=== PATIENT | female | born 1955 | race American Indian/Alaskan Native ===

== ENCOUNTER 2017-05-19 14:05 | Emergency (ER) | payer MEDICARE ==
--- NOTE | 2017-05-19 16:49 | Emergency Department Report ---
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 Mastectomy. Hysterectomy - Social History Smoking Status: Unknown if ever smoked Substance Use Type: None - Medications Home Medications: Home Medications Medication Instructions Recorded Confirmed Last Taken Type Carvedilol [Coreg] 25 mg PO BID 08/08/14 08/08/14 08/08/14 13:00 History Dapsone (Nf) 50 mg PO DAILY 08/08/14 08/08/14 08/08/14 13:00 History Furosemide [Lasix] 40 mg PO BID 08/08/14 08/08/14 08/07/14 21:00 History HYDROcodone/ACETAMINOPHEN 1 each PO Q6H PRN 08/08/14 08/08/14 Unknown History [Hydrocodon-Acetaminoph 7.5-325] Hydroxychloroquine [Plaquenil] 400 mg PO QDAY 08/08/14 08/08/14 08/08/14 13:00 History Morphine Sulfate [Ms Contin] 100 mg PO TID 08/08/14 08/08/14 Unknown History Prednisone [predniSONE] 7 mg PO QDAY 08/08/14 08/08/14 08/08/14 13:00 History Pantoprazole [Protonix] 20 mg PO BID #60 tablet. 08/09/14 Unknown Rx ED Review of Systems ROS: Stated complaint: CAN'T URINE SINCE YESTERDAY Other details as noted in HPI Physical Exam - Physical Exam Vital Signs: Vital Signs 05/19/17 14:56 Temperature 98.8 F Pulse Rate 76 Respiratory 18 Rate Blood Pressure 141/80 O2 Sat by Pulse 100 Oximetry ED Course Vital Signs 05/19/17 14:56 Temperature 98.8 F Pulse Rate 76 Respiratory 18 Rate Blood Pressure 141/80 O2 Sat by Pulse 100 Oximetry Critical care attestation.: If time is entered above; I have spent that time in minutes in the direct care of this critically ill patient, excluding procedure time. ED Disposition Condition: Stable Instructions: Abdominal Pain (ED)
--- NOTE | 2017-05-19 16:49 | Emergency Department Report ---
Entered by MANDIE SINGH, acting as scribe for ED SHEPHERD PA. Chief Complaint: Abdominal Pain Stated Complaint: CAN'T URINE SINCE YESTERDAY Time Seen by Provider: 05/19/17 15:15 - HPI History of Present Illness: 62 year old female with PMHx [place], [place], HTN presents to the ED with c/o ischuria and bilateral swelling of lower extremities since yesterday. Patient states she has difficulties in urinating since yesterday afternoon, and the last time was yesterday morning. Patient's last chemotherapy was 2 weeks ago and follows up on 05/25/2017. Patient reports constipation but denies fever, chills, SOB, chest pain, and abdominal pain. - ROS Review of Systems: Reports ischuria and constipation Denies fever, chills, SOB, chest pain, and abdominal pain. - Exam Vital Signs: Vital Signs 05/19/17 14:56 Temperature 98.8 F Pulse Rate 76 Respiratory 18 Rate Blood Pressure 141/80 O2 Sat by Pulse 100 Oximetry Physical Exam: Constitutional: Non toxic appearing, NAD. Cardiovascular: Normal rate and rhythm with normal S1/S2 sounds. Respiratory: No respiratory distress. Lung sounds clear to auscultation bilaterally. Abdomen: Soft, nontender, and nondistended. Positive bowel sounds. No hepatosplenomegaly was noted. No guarding or rebound tenderness, negative epigastric bruit. Negative psoas sign, negative avila sign, negative McBurneys sign MSE screening note: Focused history and physical exam performed. Due to findings the following was ordered: ED Disposition for MSE Condition: Stable Instructions: Abdominal Pain (ED) This documentation as recorded by the scribe,MANDIE SINGH,accurately reflects the service I personally performed and the decisions made by JOAO alvarenga OYINLOLA A, PA.
[2017-05-19 21:29] LABS: Calcium 8.9 mg/dL (8.4-10.2)
[2017-05-19 21:30] LABS: Albumin 3.5 g/dL (3.9-5); Albumin/Globulin Ratio 1.2 %; Bilirubin,Total 0.2 mg/dL (0.1-1.2); Chloride 96.5 mmol/L (98-107); Total Protein 6.5 g/dL (6.3-8.2)
[2017-05-19 21:35] LABS: Hematocrit 43.2 % (30.3-42.9); Hemoglobin 13.7 gm/dl (10.1-14.3); Mean Corpuscular HGB Conc 32 % (30-34); Mean Corpuscular Hemoglobin 28 pg (28-32); Mean Corpuscular Volume 89 fl (79-97); Platelet Count 210 K/mm3 (140-440); Red Blood Count 4.85 M/mm3 (3.65-5.03); Red Cell Distribution Width 13.9 % (13.2-15.2); White Blood Count 4.3 K/mm3 (4.5-11.0)
[2017-05-19] MEDS ORDERED: NACL 0.9% 1000 ML 1,000 ML IV ONE (22:06)
--- NOTE | 2017-05-19 22:08 | Emergency Department Report ---
ED Abdominal Pain HPI - General Chief Complaint: Abdominal Pain Stated Complaint: CAN'T URINE SINCE YESTERDAY Time Seen by Provider: 05/19/17 15:15 Source: patient Mode of arrival: Ambulatory Limitations: No Limitations - History of Present Illness MD Complaint: abdominal pain, other (can not urinate) Migration to: no migration Severity: moderate Severity scale (0 -10): 7 Quality: cramping, aching Consistency: constant Improves With: nothing Worsens With: nothing Associated Symptoms: nausea. denies: vomiting, diarrhea, fever, chills, constipation, hematemesis, hematochezia, melena, hematuria, anorexia - Related Data Home Medications Medication Instructions Recorded Confirmed Last Taken Carvedilol [Coreg] 25 mg PO BID 08/08/14 05/19/17 05/19/17 08:00 Dapsone (Nf) 50 mg PO DAILY 08/08/14 05/19/17 05/19/17 07:00 Furosemide [Lasix] 40 mg PO BID 08/08/14 05/19/17 05/19/17 08:00 HYDROcodone/ACETAMINOPHEN 1 each PO Q6H PRN 08/08/14 05/19/17 05/19/17 08:00 [Hydrocodon-Acetaminoph 7.5-325] Hydroxychloroquine [Plaquenil] 400 mg PO QDAY 08/08/14 05/19/17 05/19/17 08:00 Morphine Sulfate [Ms Contin] 100 mg PO TID 08/08/14 05/19/17 05/19/17 08:00 Prednisone [predniSONE] 7 mg PO QDAY 08/08/14 05/19/17 05/19/17 08:00 Previous Rx's Medication Instructions Recorded Last Taken Type Pantoprazole [Protonix] 20 mg PO BID #60 tablet. 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 Mastectomy. Hysterectomy - Social History Smoking Status: Unknown if ever smoked Substance Use Type: None - Medications Home Medications: Home Medications Medication Instructions Recorded Confirmed Last Taken Type Carvedilol [Coreg] 25 mg PO BID 08/08/14 05/19/17 05/19/17 08:00 History Dapsone (Nf) 50 mg PO DAILY 08/08/14 05/19/17 05/19/17 07:00 History Furosemide [Lasix] 40 mg PO BID 08/08/14 05/19/17 05/19/17 08:00 History HYDROcodone/ACETAMINOPHEN 1 each PO Q6H PRN 08/08/14 05/19/17 05/19/17 08:00 History [Hydrocodon-Acetaminoph 7.5-325] Hydroxychloroquine [Plaquenil] 400 mg PO QDAY 08/08/14 05/19/17 05/19/17 08:00 History Morphine Sulfate [Ms Contin] 100 mg PO TID 08/08/14 05/19/17 05/19/17 08:00 History Prednisone [predniSONE] 7 mg PO QDAY 08/08/14 05/19/17 05/19/17 08:00 History Pantoprazole [Protonix] 20 mg PO BID #60 tablet. 08/09/14 05/19/17 05/19/17 08 :00 Rx ED Physical Exam - General Limitations: No Limitations General appearance: alert, in no apparent distress - Head Head exam: Present: atraumatic, normocephalic - Eye Eye exam: Present: normal appearance, PERRL - ENT ENT exam: Present: normal exam, mucous membranes dry - Neck Neck exam: Present: normal inspection - Respiratory Respiratory exam: Present: normal lung sounds bilaterally. Absent: respiratory distress - Cardiovascular Cardiovascular Exam: Present: regular rate, normal rhythm. Absent: systolic murmur, diastolic murmur, rubs, gallop - GI/Abdominal GI/Abdominal exam: Present: soft, normal bowel sounds - Extremities Exam Extremities exam: Present: normal inspection - Back Exam Back exam: Present: normal inspection - Neurological Exam Neurological exam: Present: alert, oriented X3 - Psychiatric Psychiatric exam: Present: normal affect, normal mood - Skin Skin exam: Present: warm, dry, intact, normal color. Absent: rash ED Course Vital Signs 05/19/17 05/19/17 05/19/17 14:56 21:15 21:21 Temperature 98.8 F Pulse Rate 76 72 Respiratory 18 12 Rate Blood Pressure 141/80 150/73 O2 Sat by Pulse 100 100 100 Oximetry 05/19/17 05/19/17 05/19/17 21:31 21:41 21:51 Temperature Pulse Rate 73 72 78 Respiratory 12 12 10 L Rate Blood Pressure 150/73 150/73 150/73 O2 Sat by Pulse 100 100 100 Oximetry 05/19/17 05/19/17 05/19/17 22:00 22:27 22:31 Temperature Pulse Rate 73 74 76 Respiratory 13 19 12 Rate Blood Pressure 148/72 148/72 148/72 O2 Sat by Pulse 99 100 Oximetry 05/19/17 05/19/17 22:41 22:51 Temperature Pulse Rate 77 79 Respiratory 12 11 L Rate Blood Pressure 148/72 148/72 O2 Sat by Pulse 99 56 L Oximetry ED Medical Decision Making - Lab Data Result diagrams: 05/19/17 20:50 05/19/17 20:50 - Radiology Data Radiology results: report reviewed, image reviewed - Medical Decision Making patient doing well, total relieved of the symptoms after smith was placed, she prefers to go home with it and follow up with PMD for removal, labs negative and ct abdomen and pelvis negative. Critical care attestation.: If time is entered above; I have spent that time in minutes in the direct care of this critically ill patient, excluding procedure time. ED Disposition Clinical Impression: Abdominal pain, Urinary retention Disposition: - TO HOME OR SELFCARE Is pt being admited?: No Does the pt Need Aspirin: No Condition: Good Instructions: Abdominal Pain (ED) Referrals: PRIMARY CARE, [Primary Care Provider] - 3-5 Days Time of Disposition: 23:36
[2017-05-19 22:26] LABS: Basophils % (Manual) 0 % (0.0-1.8); Blastocytes % (Manual) 0 %
[2017-05-19 22:27] LABS: Diff Status Complete; Platelet Estimate Consistent w Auto; RBC Morphology Normal
--- NOTE | 2017-05-19 22:44 | Cat Scan Report ---
FINAL REPORT PROCEDURE: CT ABDOMEN PELVIS WO CON TECHNIQUE: Computerized axial tomography of the abdomen and pelvis was performed without intravenous contrast. This study is performed without intravascular contrast material and its sensitivity for abdominal and pelvic pathology, including neoplasms, inflammation, abscess, free fluid, thrombosis, arterial dissection and infarction, is reduced compared with a contrast enhanced study. HISTORY: Abdominal Pain COMPARISON: No prior studies are available for comparison. FINDINGS: Visualized lower thorax: Prominent cardiac silhouette. Hiatal hernia. Small amount of pericardial fluid is present. Liver: Normal size and attenuation. Spleen: Normal size and attenuation. Gallbladder and biliary system: Normal. Pancreas: Normal. Adrenals: Normal. Kidneys: Normal. GI tract: There is moderate volume of stool in the colon, suggesting constipation. Distal appendiceal tip is not well delineated from surrounding small bowel loops. However proximal appendix is unremarkable in appearance. No bowel obstruction or inflammation is seen otherwise Lymph nodes and mesentery: Normal. Vasculature: Aortic calcification. Bladder: Normal. Reproductive organs: Uterus is not visualized. Peritoneum: No free fluid. Musculoskeletal structures: There is focal depression of the superior endplate of L1. Other: None. IMPRESSION: The distal appendiceal tip is not well delineated or evaluated. The appendix otherwise appears unremarkable proximally. No other inflammatory process is seen. Moderate constipation Hiatal hernia.
[2017-05-19 23:23] LABS: Bacteria,Urine 1+ /HPF (Negative); Bilirubin,Urine NEG (Negative); Blood,Urine NEG (Negative); Ketones,Urine NEG (Negative); Leukocyte Esterase,Urine NEG (Negative); Nitrite,Urine NEG (Negative); Protein,Urine <15 mg/dL mg/dL (Negative); Urobilinogen,Urine < 2.0 mg/dL (<2.0)
[2017-05-20 00:08] VITALS: BP 144/84
== END 2017-05-20 | disposition home or self-care (01) ==
LOC: ED 14:05
DX: R33.9 Retention of urine, unspecified (principal); R10.9 Unspecified abdominal pain; I10 Essential (primary) hypertension; I25.2 Old myocardial infarction; Z90.710 Acquired absence of both cervix and uterus; C80.1 Malignant (primary) neoplasm, unspecified
CPT/HCPCS: 36415; 51702; 74176; 80053; 81001; 85007; 85025

== ENCOUNTER 2017-05-21 17:00 | Emergency (ER) | payer MEDICARE ==
[2017-05-21 21:24] VITALS: BP 183/83
== END 2017-05-21 22:40 | disposition left against medical advice (07) ==
LOC: ED 17:00
DX: Z46.9 Encounter for fitting and adjustment of unspecified device (principal); Z53.21 Procedure and treatment not carried out due to patient leaving prior to being seen by health care provider